=== PATIENT | female | born 2000 | race Caucasian/White ===

== ENCOUNTER 2025-02-28 18:32 | Emergency (ER) | payer OTHER, MEDICAID, SELFPAY ==
--- OUTSIDE RECORDS SUMMARY | 2018-03-26 09:00 | XMS_ITS | Continuity of Care Document ---
Author Organization [facility] Address [address] [place] [address] Phone Care Team Providers Care Tensioning Machine Operator Name Role Phone Jt DAVISIfeoma Unavailable Unavailabl e Allergies, Adverse Reactions, Alerts Substance Reaction Status Criticality METHYLPHENIDATE HCL Hallucinations Active No Inf ormation Penicillins Active No Information ampicillin Active No Information amoxicillin Active No Information Medications Medication Instructions Dosage Effective Dates (start - stop) Status Comments oxcarbazepine 600 mg tablet take 1 tablet by oral route 3 times every day 600 MG - Active trazodone 50 mg tablet take 2 tablet by oral route every day At bedtime 100 MG - Active guanfacine 1 mg tablet take 1 tablet by oral route 2 times every day at bedtime 1 MG - Active aripiprazole 15 mg tablet take 1/2 tablet by oral route every day - Active Procedures Procedure Date URINE TEST Infectious Agent Antigen Detection By Im munoavidya AGENT NOS ASSAY W/OPTIC URINALYSIS, AUTO, W/O SCOPE OFFICE/OUTPATIENT VISIT, NEW ROUTINE VENIPUNCTURE Results Test Name Date and Time Measure Units Reference Range Abnormal Flag Status Comments Panel Description: hCG, Qualitative Final hCG negative Final Panel Description: Hepatitis Panel (4) Final Hep A Ab, IgM 2017 14:06:0 0 Negative Negative Final [facility] [id number], [place] [address]QS MD Yadira HBsAg Screen 2017 14:06:0 0 Negative Negative Final Ghislaine [id number], [place] [address]GI MD Yadira Hep B Core Ab, IgM 2017 14:06:0 0 Negative Negative Final Ghislaine [id number], [place] [address]DL MD Yadira Hep C Virus Ab 2017 14:06:0 0 <0.1 s/co ratio 0.0-0.9 Final Negative: < 0.8 Indeterminate: 0.8 - 0.9 Positive: > 0.9 . The CDC recommends that a positive HCV antibody result be followed up with a HCV Nucleic Acid Amplification test ([id number]).Ghislaine [id number], [place] [address]AD MD Yadira Panel Description: HSV 1 and 2-Spec Ab, IgG w/Rf x Final HSV 1 IgG, Type Spec 2017 14:06:0 0 <0.91 index 0.00-0.90 Final Negative <0.91 Equivocal 0.91 - 1.09 Positive >1.09 Note: Negative indicates no antibodies detected to HSV-1. Equivocal may suggest early infection. If clinically appropriate, retest at later date. Positive indicates antibodies detected to HSV-1.[address] [address]HylsflbDavid Leyva MD HSV 2 IgG, Type Spec 2017 14:06:0 0 <0.91 index 0.00-0.90 Final Negative <0.91 Equivocal 0.91 - 1.09 Positive >1.09 Note: Negative indicates no antibodies detected to HSV-2. Equivocal may suggest early infection. If clinically appropriate, retest at later date. Positive indicates antibodies detected to HSV-2.[address] [address]KytyogdDavid Leyva MD Panel Description: NuSwab Vaginitis Plus (VG+) Final Atopobium vaginae 2017 14:06:0 0 Low - 0 Score Final [address] [address]AbvujgjGrey Leyva MD BVAB 2 2017 14:06:0 0 Low - 0 Score Final KyleUtcitlaly 88 Christensen StreetVaughn Leyva MD Megasphaera 1 2017 14:06:0 0 Low - 0 Score Final Calculate tota l score by adding the 3 individual bacterialvaginosis (BV) marker scores together. Total score isinterpreted as follows:Total score 0-1: Indicates the absence of BV.Total score 2: Indeterminate for BV. Additional clinical data should be evaluated to establish a diagnosis.Total score 3-6: Indicates the presence of BV. .This test was developed and its performance characteristicsdetermin ed by [facility]. It has not been cleared or approvedby the Food and Drug Administration. The FDA has determinedthat such clearance or approval is not necessary.[place] [id number]-Vaughn Leyva MD Ruth albicans, VINCE 2017 14:06:0 0 Negative Negative Final [place] [id number] Leyva MD Ruth glabrata, VINCE 2017 14:06:0 0 Negative Negative Final This test was developed and its performance characteristics determinedby [facility]. It has not been cleared or approved by the Food and DrugAdministration. The FDA has determined that such clearance orapproval is not necessary.[place] [id number] Leyva MD Trich vag by VINCE 2017 14:06:0 0 Negative Negative Final [place] [id number] Leyva MD Chlamydia trachomatis, VINCE 2017 14:06:0 0 Negative Negative Final [place] [id number]-Vaughn Leyva MD Neisseria gonorrhoeae, VINCE 2017 14:06:0 0 Negative Negative Final [address] [place] [address]GqqktecDavid Leyva MD Panel Description: Treponema pallidum Antibodies Final Treponema pallidum Antibodies 2017 14:06:0 0 Negative Negative Final [facility] [id number], [place] [address]OO MD Yadira Panel Description: Alere HIV 1/2 Ag/Ab Rapid Res ults Final Alere HIV 1/2 Control Line 2017 16:37:0 0 OK Present Final Alere HIV 1/2 Antigen 2017 16:37:0 0 Negative Negative Final Alere HIV 1/2 Antibody 2017 16:37:0 0 Negative Negative Final Panel Description: Urinalysis, Dip Final U-Glucose 2017 15:44:0 0 neg Negative Final U-Bilirubin 2017 15:44:0 0 neg Negative Final U-Ketones 2017 15:44:0 0 neg Negative Final U-Specific [place] 2017 15:44:0 0 1.030 Final U-Occult Blood 2017 15:44:0 0 neg Negative Final U-pH 2017 15:44:0 0 6.0 Final U-Protein 2017 15:44:0 0 neg Negative Final U-Urobilinoge n 2017 15:44:0 0 0.2 mg/dL mg/dL 0.2-1.0 Final U-Nitrite 2017 15:44:0 0 neg Negative Final U-Leukocytes 2017 15:44:0 0 neg Negative Final Advance Directives Directive Yes / No Effective Date File Name No Information Encounters Encounter Description Practice Location Reason(s) For Visit Diagnoses Date Provider Providers Copied on Encounter OFFICE/OUTPAT IENT VISIT, [facility], [place], [address] [facility] [place], [id number], [place] tel:[phone] [facility] PFH H&P (chief complaint)M usculoskele ivan pain (chief complaint) High risk heterosexual behaviorPain in right shoulder Sep-2 201 8 Jt Dia. [address] [place], [address], . tel:[phone] Referring Provider: Ifeoma Waters, [address] [place], [address]. tel:[phone] Family History Family Member Type Diagnosis Age At Onset Paternal grandmother Problem (finding) attention deficit hyperactivity disorder Mother Problem (finding) Substance Abuse Mother Problem (finding) Alcoholism Mother Problem (finding) Schizophrenia Paternal grandmother Problem (finding) Bipolar Disorde r Mother Problem (finding) Bipolar Disorder Payers Payer name Insurance type Covered constitution party ID Authoriza tion(s) [facility] [id number] [employer] Medicaid [id number] Social History Type Description Quantity Date Captured Comments Alcohol Use Details Caffeine Use Details soda and coffee 8 Tobacco Use Status Very heavy cigarette smoker (40+ cigs/day) Smoking Status Heavy tobacco smoker Smoking Tobacco Use Details Cigarette: No Details Available Cigarette: 2 Packs per day Sex Female Vital Signs Date / Time: Height Weight BMI Pulse Rate Blood Pressure Temperature Respiratory Rate Body Surface Area Head Circumference Head Circ. Percentile Wt./Wiliam. Percentile BMI percentile Pulse Ox Inhaled Ox 11:00 AM 82.010 kg (180.80 lbs) 73 /min 120/68 mm[Hg] 97.50 F 97 % Chief Complaint And Reason For Visit From encounter dated '03/26/2018 14:00'. PFH H&P (chief complaint). Description: The symptoms began 2 days ago and generally lasts varies. Patient presents to the clinic today with [facility] for [facility] history and physical. Patient stated she got to [facility] on 03/24/2018. Patient stated her drug of choice is weed for the past 2 months. Patient stated that she is sexually active but does not use protection. Patient is to have STD testing at today's visit. Patient stated that she hasbeen drinking alcohol every other day for the past 3-4 months. Patient stated she smokes 2 packs ofcigarettes per day and has for the past 7 months. 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 Patient is currently taking Oxcarbazepine, Trazodone, Guanfacine, Aripiprazole, and has the Nexplanon. Patient stated no other questions or concerns at this time. Musculoskeletal pain (chief complaint). Description: Onset: 2 days ago. Location: right shoulder. The pain is piercing, sharp and throbbing. There are no aggravating factors. There are no relieving factors. Pertinent negatives include bruising, decreased mobility, difficulty initiating sleep, limping, locking, numbness, popping, spasms, swelling, tingling in the arms, tingling in the legs and weakness. Additional information: Patient reported no other questions or concerns at this time. Reason For Referral Reason For Referral No Information History Of Present Illness Encounter Date Complaint History Of Prese nt Illness Musculoskeletal pain Onset: 2 da ys ago. Location: right shoulder. The pain is piercing, sharp and throbbing. There are no aggravating factors. There are no relieving factors. Pertinent negatives include bruising, decreased mobility, difficulty initiating sleep, limping, locking, numbness, popping, spasms, swelling, tingling in the arms, tingling in the legs and weakness. Additional information: Patient reported no other questions or concerns at this time. PFH H&P The symptoms beg an 2 days ago and generally lasts varies. Patient presents to the clinic today with [facility] for [facility] history and physical. Patient stated she got to [facility] on 03/24/2018. Patient stated her drug of choice is weed for the past 2 months. Patient stated that she is sexually active but does not use protection. Patient is to have STD testing at today's visit. Patient stated that she has been drinking alcohol every other day for the past 3-4 months. Patient stated she smokes 2 packs of cigarettes per day and has for the past 7 months. Patient has a history of a traumatic brain injury on 12/22/16 and a seizure disorder. Patient is currently taking Oxcarbazepine, Trazodone, Guanfacine, Aripiprazole, and has the Nexplanon. Patient stated no other questions or concerns at this time. Functional Status Date Functional Assessmen t No Information Instructions Date Instruction Additional Infor brittany Patient presents tod ay with complaints of pain and tenderness in her right shoulder. Patient states the pain started when she was throwing a ball, and a ball hit her in her right shoulder. Patient has point tenderness on the muscles. Patient instructed to continue with Tylenol and Ibuprofen along with stretches. Patient to follow up in 2 weeks, or sooner if needed. Related to Pain in right shoulder Patient presents tod ay for history and physical with PFH, adolescent. Patient reports in August with a miscarriage. Patient currently has Nexplanon in place. Urine was negative in office today. Patient had some complaints of brown discharge for 2 days, but reports that it is cleared up. Patient to have STD screening performed. Patient had a recent UA positive for blood, repeat UA today. Patient to follow up in 2 weeks to review labs.Patient presents today to have labs done per providers orders. Area cleansed with alcohol and venipuncture to left AC space done without complications. Pressure placed on site with cotton ball. Sterile adhesive bandage applied to site. Patient tolerated with no complaints. Patient instructed on post site superintendent care. Labs drawn and sent to lab with orders. Patient is to be notified when results of labs are completed. Related to High risk heterosexual behavior Assessments Type Assessment Date assessment High risk heterosexual behavior assessment Pain in right shoulder 19 Mental Status Date Cognitive Assessment Orientation - [place] ed to time, place, person, situation. Patient Care Teams Name Effective Dates (start - stop) Status Members No Information
--- OUTSIDE RECORDS SUMMARY | 2023-12-27 06:00 | XMS_ITS | Continuity of Care Document ---
Author Organization [facility] Address [address] [place] [phone] Phone Care Team Providers Care Flipping Machine Operator Name Role Phone Claire Blankenship NP Unavailable Unavailable Allergies, Adverse Reactions, Alerts Substance Reaction Status Criticality PENICILLIN RashRashTrouble Breathing Active No Information QUETIAPINE FUMARATE Contraindicated due to Siezure Dis order Active No Information morphine Trouble Breathing Active No Informa tion Medications Medication Instructions Dosage Effective Dates (start - stop) Status Comments Ventolin HFA 90 mcg/actuation aerosol inhaler inhale 2 puff by inhalation route every 4 - 6 hours as needed 180 MCG - Active Prozac 40 mg capsule take 1 capsule by o ral route every day in the morning 40 MG - Active Procedures Procedure Date OFFICE/OUTPATIENT VISIT [facility] Advance Directives Directive Yes / No Effective Date File Name No Information Encounters Encounter Description Practice Location Reason(s) For Visit Diagnoses Date Provider Providers Copied on Encounter [facility], [address] [place] [address], [id number], [place] tel:[phone] [facility] No Information 4 Krzysztof Rangel. [address] [place] [address], [id number], [place]. tel:[phone] Referring Provider: Claire Blankenship, [address] [place] [address], [id number] . tel:[phone] OFFICE/OUTPAT IENT VISIT [facility], [address] [place] [address], [id number], tel:[phone] [facility] Adult BMI 35.0-35.9Anxiety and depressionHistory of traumatic brain injury David Carolynn. [address] [place] [address], [id number], . tel:[phone] Referring Provider: Carolynn Hernandez, [address] [place] [address], [id number] . tel:[phone] Family History Family Member Type Diagnosis Age At Onset Mother Problem Heart trouble Problem Family history of Mental dis order Problem Family history of Cancer, br east Problem Family history of Learning d isability Problem Family history of Diabetes m ellitus Problem Family history of Asthma Problem Family history of Depression Mother Problem Mental disorder Mother Problem ADD/ADHD Father Problem Mental disorder Problem Family history of Hearing lo ss Father Problem Alcoholism Mother Problem Alcoholism Father Problem ADD/ADHD Problem Family history of Seizure di sorder Payers Payer name Insurance type Covered constitution party ID Prabhjot Kaur (s) [facility] Medicaid [place] [id number] Social History Type Description Quantity Date Captured Comments Alcohol Use Details Unknown Caffeine Use Details Unknown Tobacco Use Status No Information Smoking Status No Information Sex Female Sexual Orientation Straight or heterosexual Nov Gender Identity Female Chief Complaint And Reason For Visit No Information Reason For Referral Reason For Referral No Information Plan Of Treatment Date Type Action Status Goal Hepatitis C screening. Due o n due Goal HPV (1st). Due on 4 due Goal Influenza vaccine. Due on due Goal Td vaccine. Due on 24 due Goal Dental Exam. Due on 024 due Goal Depression screening. Due on due Goal Tdap. Due on due Goal PAP. Due on due Goal Unhealthy drug use screening . Due on due Goal Unhealthy drug use screening . Due on due Goal Hepatitis C screening. Due o n due Goal PAP. Due on due Goal Tdap. Due on due Goal Depression screening. Due on due Goal Dental Exam. Due on 024 due Goal Td vaccine. Due on 24 due Goal Influenza vaccine. Due on due Goal HPV (). Due on due Goal Lifestyle education regardin g diet completed Referral Ordered: Referrals: Clinical Psychology. Evaluate and treat Appointment date/timeframe: 12/30/2023 ordered Referral Ordered: Referrals: Psychiatry. Evaluate and treat Appointment date/timeframe: 12/27/2023 ordered History Of Present Illness Encounter Date Complaint History Of Prese nt Illness estab care Here to [facility]. Needing to see psychiatry and counselor for anxiety/depression, hx of TBI and anemia. Taking Prozac presently but it is not working. Denies SI/HI. No seizures since 2018. States she had recent labs which I reviewed, normal CBC and CMP. Functional Status Date Functional Assessmen t No Information Instructions Date Instruction Additional Infor brittany Lifestyle education regarding di et Related to Body mass index [BMI] 35.0-35.9, adult Assessments Type Assessment Date No Information Patient Care Teams Name Effective Dates (start - stop) Status Members No Information
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
[2025-02-28 18:35] VITALS: BP 121/74; PULSE 89; RESP 20; TEMP 36.5; O2SAT 96
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
[2025-02-28] MEDS: HYDROcodone/acetaminophen (*CRX) 10-325 MG TABLET 1 TAB PO (18:56)
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
--- OUTSIDE RECORDS SUMMARY | 2025-02-28 19:09 | XMS_ITS | Clinical Summary ---
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 [facility] 10/29/24 Ariadna Lynn DO [address] [facility] [place] [place] [address] Earth Science Technical Officer Obstetrics and Gynecology 01/21/23
[2025-02-28] MEDS: TETANUS,DIPHTHERIA,AC PERTUSSIS ADULT 0.5 ML (ADACEL) IM (19:56)
[2025-02-28] MEDS: IBUPROFEN 600 MG TABLET PO (20:49)
[2025-02-28 22:03] VITALS: BP 134/67; PULSE 77; RESP 16; TEMP 37; O2SAT 96
== END 2025-02-28 22:03 | disposition home or self-care (01) ==
PROVIDERS: Emergency Provider Emergency Medicine; Referring Provider Internal Medicine
DX: S30.0XXA Contusion of lower back and pelvis, initial encounter (principal); M25.562 Pain in left knee; M25.572 Pain in left ankle and joints of left foot; T14.8XXA Other injury of unspecified body region, initial encounter; Z23 Encounter for immunization; Y04.2XXA Assault by strike against or bumped into by another person, initial encounter
CPT/HCPCS: 70450; 71101; 72100; 72125; 73080; 73110; 73564; 73610; 90471; 90715; 99284; A9270

== ENCOUNTER 2025-06-14 14:54 | Emergency (ER) | payer BC, OTHER, MEDICAID, SELFPAY ==
[2025-06-14 15:05] VITALS: BP 113/84; PULSE 92; RESP 18; TEMP 36.6; O2SAT 98
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
== END 2025-06-14 15:36 | disposition home or self-care (01) ==
PROVIDERS: Emergency Provider Nurse Practitioner
DX: S61.032A Puncture wound without foreign body of left thumb without damage to nail, initial encounter (principal); W55.01XA Bitten by cat, initial encounter
CPT/HCPCS: 99213; G0463